=== PATIENT | female | born 1945 | race Caucasian/White ===

== ENCOUNTER → 2016-02-28 | Outpatient (CLI) | payer OTHER ==
[~2016-02-28] MED LIST: CALC500C70 PO; HYDC25 PO; LEVO200T20 PO; LISI40TA PO; PRAV20TA PO; PRCUNK PO
== END | disposition home or self-care (01) ==
LOC: C.LAB 10:20
PROVIDERS: ATTEND Nurse Practitioner
DX: N20.9 Urinary calculus, unspecified (principal)

== ENCOUNTER 2021-02-26 13:08 | Observation (INO) ==
--- NOTE | 2021-02-26 13:41 | Emergency Department Note ---
History of Present Illness General Chief complaint: Syncope Stated complaint: SYNCOPE, VOMITING Time Seen by Provider: 02/26/21 13:30 History of Present Illness 75-year-old female presents via EMS reportedly was at the [facility] stating she turned her head and she may have had a syncopal episode. She did state that she vomited. Patient denies any dizziness denies headache denies slurred speech denies blurred vision. Patient denies any chest pain or shortness of breath. Patient did have an episode of vomiting prehospital. She has no other complaints. Patient states that she is vaccinated with a booster. There are no other mitigating or alleviating factors. There is no prior history of syncope or seizure activity. Home Medications Medication Instructions Recorded Confirmed Type ibuprofen 200 mg capsule 400 mg PO QID PRN 03/11/18 02/17/21 History pravastatin 80 mg tablet 80 mg PO HS #90 tab 05/10/20 02/17/21 Rx amlodipine 10 mg tablet 10 mg PO QAM #90 tab 05/27/20 02/17/21 Rx levothyroxine 125 mcg tablet 125 mcg PO DAILY #30 tab 10/18/20 02/17/21 Rx lisinopril 40 mg tablet 40 mg PO DAILY #90 tab 11/11/20 02/17/21 Rx cholecalciferol (vitamin D3) 25 25 mcg PO DAILY #30 tab 11/13/20 02/17/21 Rx mcg (1,000 unit) tablet metoprolol succinate 50 mg 50 mg PO QAM #30 tab 12/05/20 02/17/21 Rx tablet,extended release 24 hr sulfamethoxazole 800 1 tab PO BID 7 Days #14 tab 02/17/21 02/17/21 Rx mg-trimethoprim 160 mg tablet lorazepam 0.5 mg tablet 0.5 mg PO BID PRN #60 tab 02/26/21 Rx tramadol 50 mg tablet 50 mg PO Q6H PRN #30 tab 02/26/21 Rx Allergies Allergy/AdvReac Type Severity Reaction Status Date / Time atorvastatin Allergy Mild NAUSEA Verified 02/17/21 16:14 Past Med/Surg History Medical History Allergic rhinitis Anxiety Chronic back pain TO LEFT LEG Compression fracture of L4 vertebra Diabetes mellitus type 2, controlled Dyslipidemia GERD (gastroesophageal reflux disease) H/O renal calculi Hemorrhoids Hypertension Hypothyroid Leaking of urine 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 No further treatment warranted at the time. Microscopic hematuria Mitral regurgitation Nephrolithiasis Numerous moles Osteoarthritis Sacroiliitis SOB (shortness of breath) on exertion Tricuspid valve disorder Surgical History H/O lithotripsy History of anesthesia reaction DISORIENTATION FIRST DAY POST OP History of cataract surgery B/L done in summer 2020 History of colonoscopy History of kidney surgery WITH REMOVAL STONE LEFT KIDNEY History of tooth extraction History of tubal ligation Family History Mother Liver cancer Cancer Hypertension Father Lung cancer Cancer Grandfather Lung cancer Family history of diabetes mellitus Grandfather Hypertension Denies family history of Ovarian cancer Prostate cancer Myocardial infarction Breast cancer Colorectal cancer Social History Smoking Status: Never smoker Tobacco Type: Cigarettes Age Started Using Tobacco: 29; Age Quit Using Tobacco: 44; Cigarettes Per Day: only smoked on weekends when social; Second Hand Exposure: No; Hx Alcohol Use: Yes Alcohol type: beer Alcohol Intake Frequency: Monthly or Less Hx Substance Use: No Preferred Language: Citizen Of [place] Communication Ability: Effective Visual Impairment: No Limitations Hearing Ability: Normal Injection Wax Molder Required: No Beliefs That Will Affect Care: None marital status: Single Current Living Situation: Alone current occupational status: retired 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 Feels Safe at Home: Yes Childhood Exposure to Second-Hand Smoke: No caffeine: Yes Dental Care, Regularly: No Physical Activity Frequency: 3-4 Times per Week Seatbelt Use: always Sunscreen Use: Yes Assistive Devices: Glasses Review of Systems A total of 10 systems reviewed and were otherwise negative Constitutional: no fever Ear, Nose, Mouth, Throat: + dizziness Respiratory: no cough Cardiovascular: no chest pain Musculoskeletal: no neck pain Neurologic: + dizziness Physical Exam Vital Signs Vital Signs - 24 hr 02/26/21 13:19 02/26/21 14:59 Temperature 36.8 C Temperature Source Oral Pulse Rate 75 Pulse Rate [Apical] 63 Pulse Rhythm [Apical] Regular Respiratory Rate 14 23 Respiratory Effort / Characteristics Non-Labored Respiratory Depth Normal Blood Pressure 92/58 L Blood Pressure Mean 69 Pulse Oximetry 96 96 Oxygen Delivery Method Room Air Room Air Sepsis Recent Fever Within 48 Hours No Sepsis New/Unexplained Change in Mental Status No Sepsis Action Taken by Nursing No Action Required VITAL SIGNS - Vital signs and nursing notes were reviewed. GENERAL -75-year-old female appearing her stated age who is in no acute d istress. Communicates well with provider and answers questions appropriately. SKIN - Without rashes. HEAD - NC/AT. EYES - PERRL with EOMI bilaterally. Sclera anicteric. Palpebral conjunctiva pink and moist with no injection noted. EARS - No deformities of external structures noted on gross examination bilaterally. NOSE - Midline and without cyanosis. No epistaxis or purulent drainage noted. Septum midline without deviation or septal hematoma noted. MOUTH/OROPHARYNX - Without perioral cyanosis. Buccal mucosa pink and moist and without leukoplakia. Tongue midline with equal elevation of palate bilaterally. No tonsillar hypertrophy, erythema, or exudates noted. [] dentition noted. NECK - Neck with FROM. Supple to palpation. No lymphadenopathy noted. No nuchal rigidity. LUNGS - Chest wall symmetric without accessory muscle use, intercostals retractions, or central cyanosis. Normal vesicular breath sounds CTA B/L. No wheezes, rales, or rhonchi appreciated. CARDIAC - RRR with S1/S2. No murmur, rubs, or gallops appreciated. ABDOMEN - Abdominal contour [] without pulsations or visible masses. BS normoactive all four quadrants. No tenderness, palpable masses, hepatosplenomegaly, or ascites noted. EXTREMITIES - No clubbing or peripheral cyanosis. No pretibial edema present. . +5/5 strength noted in UE/LE bilaterally. NEUROLOGIC - Cranial nerves II through XII grossly intact. Sensory intact to light touch throughout. GCS of 15, nonfocal neurologic exam PSYCH - A&Ox3 and cooperates fully with examiner. Pt is very pleasant and interacts well with examiner. Course Reevaluation(s) Reevaluation #1: On my reevaluation at 1504 patient is resting in no distress she is interactive with myself and her daughter who is at bedside. Patient was given IV fluid she does state some continued nausea. Patient of note related to me that she was in fact on an antibiotic recently for urinary tract infection over the past 2 weeks. Patient has a nonfocal neurologic exam on my repeat examination at this time. Administered Medications Sodium Chloride (Nss 1000ml) 1,000 mls @ 999 mls/hr IV .Q1H1M ONE Stop: 02/26/21 15:48 Last Admin: 02/26/21 14:58 Dose: 999 mls/hr Documented by: [id number] Medical Decision Making Medical Records Attestation: I reviewed the patient's medical records. Laboratory Data Attestation: I reviewed the patient's lab results. Result diagrams: 02/26/21 13:50 02/26/21 13:50 Lab Results 02/26/21 02/26/21 02/26/21 Range/Units 13:50 13:50 13:55 WBC 7.19 (4.8-10.8) K/uL RBC 4.81 (4.2-5.4) M/uL Hgb 13.7 (12.0-16.0) g/dL Hct 42.0 (37-47) % MCV 87.3 (80-100) fL MCH 28.5 (25-34) pg MCHC 32.6 (32-36) g/dL RDW Std Deviation 49.5 H (36.4-46.3) fL RDW Coeff of Sulma 15.4 H (11.5-14.5) % Plt Count 334 (130-400) K/uL MPV 9.4 (7.4-10.4) fL Immature Gran % (Auto) 1.0 % Neut % (Auto) 73.8 % Lymph % (Auto) 14.5 % Dickson % (Auto) 5.3 % Eos % (Auto) 5.1 % Baso % (Auto) 0.3 % Neut # (Auto) 5.31 (1.4-6.5) K/uL Lymph # (Auto) 1.04 L (1.2-3.4) K/uL Dickson # (Auto) 0.38 (0.11-0.59) K/uL Eos # (Auto) 0.37 (0-0.5) K/uL Baso # (Auto) 0.02 (0-0.2) K/uL Immature Gran # (Auto) 0.07 H (0.00-0.02) K/uL Sodium 136 (136-145) mmol/L Potassium 4.2 (3.5-5.1) mmol/L Chloride 103 (98-107) mmol/L Carbon Dioxide 20 L (21-32) mmol/L Anion Gap 13 H (3-11) BUN 32 H (6-23) mg/dl Creatinine 1.77 H (0.6-1.2) mg/dl Est Cr Clr Drug Dosing 31.4 ml/min Est GFR ( Amer) 31.8 ml/min Est GFR (Non-Af Amer) 27.4 ml/min BUN/Creatinine Ratio 18.1 (10-20) Glucose 135 H (70-99) mg/dl Calcium 9.9 (8.5-10.1) mg/dl Magnesium 2.0 (1.7-2.4) mg/dl Total Bilirubin 0.5 (0.2-1.0) mg/dl AST 15 (13-39) U/L ALT 16 (7-52) U/L Alkaline Phosphatase 83 (34-104) U/L Troponin I < 0.03 (0-0.04) ng/ml Total Protein 7.9 (6.0-8.3) gm/dl Albumin 4.0 (3.4-5.0) gm/dl Globulin 3.9 (2.5-4.0) gm/dl Albumin/Globulin Ratio 1.0 (0.9-2) SARS-CoV-2, RNA, NAAT NEGATIVE (NEGATIVE) Imaging Data Radiologist's Impression: Chest X-Ray 02/26/21 13:35 XR chest 1V portable CLINICAL HISTORY: syncope TECHNIQUE: Single frontal radiograph of the chest was obtained. Comparison: Comparison is made to chest 2 views 10/14/2011 FINDINGS: No lines and tubes are seen. Cardiomegaly is noted. Prominence and cephalization of the vasculature is seen. No evidence of pleural effusion or pneumothorax. IMPRESSION: Mild pulmonary edema. ACT 112: Negative or not required by law. Electronically signed by: Joselo Lake M.D. 02/26/2021 2:[address] 02/26/21 13:35 CT head/brain wo con CLINICAL HISTORY: syncope Technique: Contiguous axial CT images of the head were acquired from the base of the skull to the vertex without intravenous contrast administration. Images were viewed in brain, subdural and bone windows. Automated dose lowering techniques and/or adjustment according to patient size were utilized for this exam. Comparison: None available at the time of this dictation. Findings: The ventricles, basal cisterns, and cerebral sulci are normal. There is no acute intracranial hemorrhage or evidence of acute territorial infarction. Neither mass effect, shift of the midline structures, nor abnormal extra-axial fluid collections are shown. Imaged portions of the paranasal sinuses and mastoid air cells are clear. The orbits appear normal. There are no acute fractures of the calvaria or scalp swelling. Impression: No acute intracranial hemorrhage, no evidence of acute territorial infarction or other acute intracranial disease process. ACT 112: Negative or not required by law. Electronically signed by: Joselo Lake M.D. 02/26/2021 2:48 PM ECG Data Attestation: I personally reviewed and interpreted this ECG as follows: Additional Comments: EKG interpreted by me normal sinus rhythm rate of 64 nonspecific T abnormality no ST segment elevation or depression, normal axis normal intervals MDM Narrative Medical decision making differential diagnosis -syncope near syncope seizure metabolic derangement dehydration cardiac dysrhythmia Impression & Plan Syncope, BENJAMÍN (acute kidney injury) Discharge Plan Visit Data Chief Complaint: Syncope Stated Complaint: SYNCOPE, VOMITING ED Provider: Michael Caruso Discharge Problem: Syncope, BENJAMÍN (acute kidney injury) Forms Stand Alone Forms: My [facility] Prescriptions Prescriptions: No Action ibuprofen 200 mg capsule 400 mg PO QID PRN (Reason: Pain) RF: 0 pravastatin 80 mg tablet 80 mg PO HS Qty: 90 RF: 3 levothyroxine 125 mcg tablet 125 mcg PO DAILY Qty: 30 RF: 11 lisinopril 40 mg tablet 40 mg PO DAILY Qty: 90 RF: 3 metoprolol succinate 50 mg tablet extended release 24 hr 50 mg PO QAM Qty: 30 RF: 5 lorazepam 0.5 mg tablet 0.5 mg PO BID PRN (Reason: anxiety) Qty: 60 RF: 1 tramadol 50 mg tablet 50 mg PO Q6H PRN (Reason: pain) Qty: 30 RF: 2 sulfamethoxazole-trimethoprim 800-160 mg tablet 1 tab PO BID 7 Days Qty: 14 RF: 0 amlodipine 10 mg tablet 10 mg PO QAM Qty: 90 RF: 3 cholecalciferol (vitamin D3) 25 mcg (1,000 unit) tablet 25 mcg PO DAILY Qty: 30 RF: 0 Referrals Referrals: Shreyas Little MD [Primary Care Provider] -
--- NOTE | 2021-02-26 13:56 | Electrocardiogram Report ---
Test Reason : Blood Pressure : / mmHG Vent. Rate : 064 BPM Atrial Rate : 064 BPM P-R Int : 188 ms QRS Dur : 088 ms QT Int : 426 ms P-R-T Axes : 053 035 036 degrees QTc Int : 439 ms Poor data quality, interpretation may be adversely affected Normal sinus rhythm Nonspecific T wave abnormality Anterior leads Abnormal ECG When compared with ECG of 27-JAN-2019 08:49, Nonspecific T wave abnormality now present Confirmed by Tomás Longoria ([id number]) on 02/26/2021 1:56:30 PM Referred By: Confirmed By:Tomás Longoria
[2021-02-26 14:01] LABS: Basophils # (auto) 0.02 K/uL (0-0.2); Basophils % (auto) 0.3 %; Eosinophils # (auto) 0.37 K/uL (0-0.5); Eosinophils % (auto) 5.1 %; Hemoglobin 13.7 g/dL (12.0-16.0); Immature Granulocytes # (auto) 0.07 K/uL (0.00-0.02); Lymphocytes # (auto) 1.04 K/uL (1.2-3.4); Lymphocytes % (auto) 14.5 %; Mean Corpuscular Hemoglobin 28.5 pg (25-34); Mean Corpuscular Hgb Conc 32.6 g/dL (32-36); Mean Corpuscular Volume 87.3 fL (80-100); Mean Platelet Volume 9.4 fL (7.4-10.4); Monocytes # (auto) 0.38 K/uL (0.11-0.59); Monocytes % (auto) 5.3 %; Neutrophils # (auto) 5.31 K/uL (1.4-6.5); Neutrophils % (auto) 73.8 %; Platelet Count 334 K/uL (130-400); RDW Coefficient of Variation 15.4 % (11.5-14.5); RDW Standard Deviation 49.5 fL (36.4-46.3); Red Blood Count 4.81 M/uL (4.2-5.4); White Blood Count 7.19 K/uL (4.8-10.8)
--- NOTE | 2021-02-26 14:11 | XRay Report ---
XR chest 1V portable CLINICAL HISTORY: syncope TECHNIQUE: Single frontal radiograph of the chest was obtained. Comparison: Comparison is made to chest 2 views 10/14/2011 FINDINGS: No lines and tubes are seen. Cardiomegaly is noted. Prominence and cephalization of the vasculature i s seen. No evidence of pleural effusion or pneumothorax. IMPRESSION: Mild pulmonary edema. ACT 112: Negative or not required by law. Electronically signed by: Joselo Lake M.D. 02/26/2021 2:10 PM
[2021-02-26 14:20] LABS: Anion Gap 13 (3-11); Bilirubin,Total 0.5 mg/dl (0.2-1.0); Calcium 9.9 mg/dl (8.5-10.1); Carbon Dioxide 20 mmol/L (21-32); Chloride 103 mmol/L (98-107); Potassium 4.2 mmol/L (3.5-5.1); Sodium 136 mmol/L (136-145)
[2021-02-26 14:24] LABS: Troponin I < 0.03 ng/ml (0-0.04)
[2021-02-26 14:26] LABS: Alanine Aminotransferase 16 U/L (7-52); Alkaline Phosphatase 83 U/L (34-104); Aspartate Aminotransferase 15 U/L (13-39); BUN Creatinine Ratio 18.1 (10-20); Blood Urea Nitrogen 32 mg/dl (6-23); Creatinine Clr Calc Pharmacy 31.4 ml/min; Est GFR (African American) 31.8 ml/min; Est GFR (Non-African American) 27.4 ml/min; Globulin 3.9 gm/dl (2.5-4.0); Glucose 135 mg/dl (70-99); Total Protein 7.9 gm/dl (6.0-8.3)
[2021-02-26] MEDS ORDERED: SODIUM CHLORIDE 0.9% 1000ML 1,000 ML IV ONE (14:48)
--- NOTE | 2021-02-26 14:49 | CT Scan Report ---
CT head/brain wo con CLINICAL HISTORY: syncope Technique: Contiguous axial CT images of the head were acquired from the base of the skull to the dileep dodie without intravenous contrast administration. Images were viewed in brain, subdural and bone [facility]. Automated dose lowering techniques and/or adjustment according to patient size were utilized for this exam. Comparison: None available at the time of this dictation. Findings: The ventricles, basal cisterns, and cerebral sulci are normal. There is no acute intracranial hemorrh age or evidence of acute territorial infarction. Neither mass effect, shift of the midline structures , nor abnormal extra-axial fluid collections are shown. Imaged portions of the paranasal sinuses and mastoid air cells are clear. The orbits appear normal. There are no acute fractures of the calvaria or scalp swelling. Impression: No acute intracranial hemorrhage, no evidence of acute territorial infarction or other acute intracra nial disease process. ACT 112: Negative or not required by law. Electronically signed by: Joselo Lake M.D. 02/26/2021 2:48 PM
--- NOTE | 2021-02-26 16:23 | History & Physical Report ---
Date of Service February 26, 2021 Assessment & Plan (1) Syncope: Plan: Difficult to ascertain as patient adamantly denies - She has no focal deficits, she is not vertiginous, and negative HINTS exam - She is currently orthostatic negative- although she is BB - Negative telemetry review- will continue telemetry overnight although low yield - No carotid bruits and normal CT scan of head - Likely secondary to hypovolemia (2) Nausea & vomiting: Plan: No abdominal pain or current pathology suspected - ? relation to her Bactrim - Likely associated with her UTI - Repeat Urine - Allow patient to eat and hydrate as above (3) UTI (urinary tract infection): Plan: Pending UA - Continue Bactrim- if nausea persists change to Augmentin or other (4) BENJAMÍN (acute kidney injury): Plan: BENJAMÍN II currently appears pre-renal - would like to ensure that her UTI is controlled - She has no CVA tenderness or pain, afebrile - UA pending - IF renal function not improved in am consider renal ultrasound - Hold ANGELES for now (5) Hypertension: Plan: Normally well controlled - As above - Continue Metoprolol - Continue Amlodopine (6) Hypothyroid: Plan: Continue synthroid (7) Anxiety: Plan: No acute need (8) Lumbago: Plan: Continue home medicaitons (9) Diabetes mellitus type 2, controlled: Plan: Not on therapy as outpatient - follow glucose on BMP History of Present Illness Primary Care Provider: Shreyas Little MD 75 YOF with past medical history of: HTN, Hypothyroidism, Obesity, HLD, Kidney stones, DMII. Patient comes to the emergency room today via EMS secondary to syncopal eppisode x2 at the [facility]. The patient goes to the [facility] mostly every day to play cards and eat. Today she did not eat lunch there but did eat breakfast prior to going with out any issues. She reports that around noon today she experienced nausea with vomiting x2 the vomit was orange in color as she did eat an orange for breakfast this morning with her coffee and bowel of cereal. EMS reports that she synchronized, however she adamantly denies this. She denied any light headedness, ringing in ears, vertiginosus symptoms or abdominal pain. She reports that she had her head turned to the right while she was still talking to the person next to her when she says they thought she passed out. Patient has been being treated for UTI by her PCP for E.COLI and was just changed from Macrobid to Bactrim yesterday, she originally had complaints of dysuria and frequency with small amounts of urine. She endorses that the dysuria has gone away, however remains with frequency. She has not had the urge to void since being in the EMD. A repeat urine is being sent. In the EMD the patient had a head CT scan performed, CXR, ECG and routine labs drawn. 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 She was given 1L of crystalloid with increase in her BP back to her baseline, she was not hypoxic, and she was not tachycardic. Patient had a stress ECHO completed in 2001 and has no other cardiac disease that is known. Patient will be observed overnight with following of her renal function. She has no CVA tenderness, afebrile and normal WBC. Continue with oral hydration. Patient COVID test is: NEGATIVE Allergies Allergy/AdvReac Type Severity Reaction Status Date / Time atorvastatin Allergy Mild NAUSEA Verified 02/26/21 16:41 Home Medications Medication Instructions Recorded Confirmed Type ibuprofen 200 mg capsule 400 mg PO QID PRN 03/11/18 02/26/21 History pravastatin 80 mg tablet 80 mg PO HS #90 tab 05/10/20 02/26/21 Rx amlodipine 10 mg tablet 10 mg PO QAM #90 tab 05/27/20 02/26/21 Rx levothyroxine 125 mcg tablet 125 mcg PO DAILY #30 tab 10/18/20 02/26/21 Rx lisinopril 40 mg tablet 40 mg PO DAILY #90 tab 11/11/20 02/26/21 Rx cholecalciferol (vitamin D3) 25 25 mcg PO DAILY #30 tab 11/13/20 02/26/21 Rx mcg (1,000 unit) tablet metoprolol succinate 50 mg 50 mg PO QAM #30 tab 12/05/20 02/26/21 Rx tablet,extended release 24 hr sulfamethoxazole 800 1 tab PO BID 7 Days #14 tab 02/17/21 02/26/21 Rx mg-trimethoprim 160 mg tablet ibuprofen 200 mg tablet 400 mg PO Q6H PRN 02/26/21 02/26/21 History lorazepam 0.5 mg tablet 0.5 mg PO BID PRN #60 tab 02/26/21 02/26/21 Rx tramadol 50 mg tablet 50 mg PO Q6H PRN #30 tab 02/26/21 02/26/21 Rx Past Med/Surg History Medical History Allergic rhinitis Anxiety Chronic back pain TO LEFT LEG Compression fracture of L4 vertebra Diabetes mellitus type 2, controlled Dyslipidemia GERD (gastroesophageal reflux disease) H/O renal calculi Hemorrhoids Hypertension Hypothyroid Leaking of urine 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 No further treatment warranted at the time. Microscopic hematuria Mitral regurgitation Nephrolithiasis Numerous moles Osteoarthritis Sacroiliitis SOB (shortness of breath) on exertion Tricuspid valve disorder Surgical History H/O lithotripsy History of anesthesia reaction DISORIENTATION FIRST DAY POST OP History of cataract surgery B/L done in summer 2020 History of colonoscopy History of kidney surgery WITH REMOVAL STONE LEFT KIDNEY History of tooth extraction History of tubal ligation Family History Mother Liver cancer Cancer Hypertension Father Lung cancer Cancer Grandfather Lung cancer Family history of diabetes mellitus Grandfather Hypertension Denies family history of Ovarian cancer Prostate cancer Myocardial infarction Breast cancer Colorectal cancer Social History Smoking Status: Never smoker Tobacco Type: Cigarettes Age Started Using Tobacco: 29; Age Quit Using Tobacco: 44; Cigarettes Per Day: only smoked on weekends when social; Second Hand Exposure: No; Do You Dip or Chew Tobacco: No; Hx Alcohol Use: Yes Alcohol type: beer and hard liquor Alcohol Intake Frequency: Monthly or Less Hx Substance Use: No Preferred Language: Barbadian Communication Ability: Effective Visual Impairment: No Limitations Hearing Ability: Normal Access Database Developer Required: No Beliefs That Will Affect Care: None marital status: Single Current Living Situation: Alone current occupational status: retired 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 Other Information That Helps Us Care for You: No Feels Safe at Home: Yes Childhood Exposure to Second-Hand Smoke: No caffeine: Yes Dental Care, Regularly: No Physical Activity Frequency: 3-4 Times per Week Seatbelt Use: always Sunscreen Use: Yes Assistive Devices: Glasses Review of Systems Review of Systems: REVIEW OF SYSTEMS: Constitutional: No fever, sweats or chills Eyes: No diplopia, no worsening or blurred vision ENT: normal hearing, no trouble swallowing Respiratory: No cough, sputum, dyspnea at rest or on exertion Cardiovascular: No chest pain, tightness or palpitations Abdomen: (+) nausea and vomiting Urinary frequency, No pain, nausea, vomiting, diarrhea or constipation Musculoskeletal: No joint pain, calf pain, swelling Neurologic: No weakness, numbness/tingling, or balance problems Psychiatric: No anxiety or depression Skin: No rash or itch Physical Exam Physical Exam: PHYSICAL EXAM: General: awake, alert, no apparent distress Head: Normocephalic, atraumatic ENT: PERRL, EOMI, no pharyngeal exudate, mucous membranes moist Neuro: AAO x 3, speech clear and appropriate, strength intact bilaterally 5/5, sensation intact and equal all extremities and dermatomes, no pronator drift Chest: equal rise and fall of the chest, no accessory muscle use, no heaves or thrills, Clear to auscultation, on room air, Cardiac: Regular rate and rhythm, telemetry reviewed, skin warm dry, cap refill <3 seconds, peripheral pulses +2 no JVD, no murmur, no edema GI: NABS x 4 quadrants, soft, nontender to palpation, no rebound, guarding or tenderness : Spontaneously voiding, no pain, no CVA tenderness, Extremities: Normal inspection, no peripheral edema or erythema, calfs nontender to palpation Psych: Normal mood and affect Skin: no rash or erythema Results & Data Results & Data ([facility]) Vital Signs (Past 12 Hours) Vital Signs Temp Pulse Pulse Resp BP Pulse Ox 02/26/21 14:59 63 23 96 02/26/21 13:19 36.8 C 75 14 92/58 L 96 Laboratory Results Abnormal lab results 02/26/21 02/26/21 Range/Units 13:50 13:50 RDW Std Deviation 49.5 H (36.4-46.3) fL RDW Coeff of Sulam 15.4 H (11.5-14.5) % Lymph # (Auto) 1.04 L (1.2-3.4) K/uL Immature Gran # (Auto) 0.07 H (0.00-0.02) K/uL Carbon Dioxide 20 L (21-32) mmol/L Anion Gap 13 H (3-11) BUN 32 H (6-23) mg/dl Creatinine 1.77 H (0.6-1.2) mg/dl Glucose 135 H (70-99) mg/dl Diagnostic Findings Chest X-Ray 02/26/21 13:35 XR chest 1V portable CLINICAL HISTORY: syncope TECHNIQUE: Single frontal radiograph of the chest was obtained. Comparison: Comparison is made to chest 2 views 10/14/2011 FINDINGS: No lines and tubes are seen. Cardiomegaly is noted. Prominence and cephalization of the vasculature is seen. No evidence of pleural effusion or pneumothorax. IMPRESSION: Mild pulmonary edema. ACT 112: Negative or not required by law. Electronically signed by: Joselo Lake M.D. 02/26/2021 2:[address] 02/26/21 13:35 CT head/brain wo con CLINICAL HISTORY: syncope Technique: Contiguous axial CT images of the head were acquired from the base of the skull to the vertex without intravenous contrast administration. Images were viewed in brain, subdural and bone windows. Automated dose lowering techniques and/or adjustment according to patient size were utilized for this exam. Comparison: None available at the time of this dictation. Findings: The ventricles, basal cisterns, and cerebral sulci are normal. There is no acute intracranial hemorrhage or evidence of acute territorial infarction. Neither mass effect, shift of the midline structures, nor abnormal extra-axial fluid collections are shown. Imaged portions of the paranasal sinuses and mastoid air cells are clear. The orbits appear normal. There are no acute fractures of the calvaria or scalp swelling. Impression: No acute intracranial hemorrhage, no evidence of acute territorial infarction or other acute intracranial disease process. ACT 112: Negative or not required by law. Electronically signed by: Joselo Lake M.D. 02/26/2021 2:48 PM Medications Administered Discontinued Medications Sodium Chloride (Nss 1000ml) 1,000 mls @ 999 mls/hr IV .Q1H1M ONE Stop: 02/26/21 15:48 Last Admin: 02/26/21 14:58 Dose: 999 mls/hr Documented by: [id number] ECG Additional Comments: Test Reason : Vent. Rate : 064 BPM Atrial Rate : 064 BPM P-R Int : 188 ms QRS Dur : 088 ms QT Int : 426 ms P-R-T Axes : 053 035 036 degrees QTc Int : 439 ms Poor data quality, interpretation may be adversely affected Normal sinus rhythm Nonspecific T wave abnormality Anterior leads Abnormal ECG When compared with ECG of 27-JAN-2019 08:49, Nonspecific T wave abnormality now present Confirmed by Tomás Longoria ([id number]) on 02/26/2021 1:56:30 PM Code Status & VTE Plan Code Status CODE: DNR/DNI VTE: SCDs, Lovenox VTE Prophylaxis Plan VTE Prophylaxis will be ordered: Yes Supervising Physician Co-Signing Physician Notes Patient was seen and examined independently I discussed the case with Dwight SIM I reviewed pertinent past medical social family history and also the plan of care and agree with the plan of care. Patient with an episode of perhaps loss of consciousness involving left head turning. She has recently been on Bactrim for UTI which may be causing some abdominal upset. She denies any and vomiting after the event. She is brought in for syncope observation on telemetry monitoring we will give her antibiotics intravenously to try to complete her course of antibiotics to avoid any gastric upset from her Bactrim. Reevaluate in the morning with orthostatics and blood pressure Digital exam finds her to be awake alert appropriate no apparent distress she no carotid bruits her heart is regular Any exceptions will be noted below PG Care Time/CCT Total # of Minutes Spent Total Time Spent with Patient: Total time spent is greater than 50% in coordination of care (as documented) at patient's floor/unit and/or counseling patient: Coding Level of Care Code INT OBSERVATION CARE 50M LVL 2 Diagnoses Nausea & vomiting R11.2 UTI (urinary tract infection) N39.0 BENJAMÍN (acute kidney injury) N17.9 Hypertension I10 Hypothyroid E03.9 Anxiety F41.9 Lumbago M54.5 Diabetes mellitus type 2, controlled E11.9 Syncope R55 Syncope type: unspecified (1) Syncope Syncope type: unspecified Qualified Code(s): R55 - Syncope and collapse
[2021-02-26] MEDS ORDERED: ONDANSETRON INJ 2 MG/ML 2 ML VIAL IV PRN (19:28)
[2021-02-26] MEDS ORDERED: ACETAMINOPHEN 325 MG TAB PO PRN (19:28)
[2021-02-26] MEDS ORDERED: POLYETHYLENE (MIRALAX) 17 GM PACK PO PRN (19:28)
[2021-02-26] MEDS ORDERED: traMADol HCL 50 MG TABLET PO PRN (19:58)
[2021-02-26] MEDS ORDERED: LORazepam 0.5 MG TAB PO PRN (19:58)
[2021-02-26] MEDS ORDERED: cefTRIAXone SODIUM 1,000 MG in DEXTROSE 5% 50 ML IV STA (19:59)
[2021-02-26] MEDS ORDERED: ENOXAPARIN INJ 40 MG/0.4 ML SYR SQ SCH (20:00)
[2021-02-26] MEDS ORDERED: cefTRIAXone SODIUM 2,000 MG in DEXTROSE 5% 50 ML IV ONE (20:15)
[2021-02-26] MEDS ORDERED: PRAVASTATIN SOD 40 MG TAB PO SCH (21:00)
[2021-02-26 21:38] LABS: Appearance Urine Clear (Clear); Bacteria Urine Automated Negative (Negative); Bilirubin Urine Negative (Negative); Blood Urine Negative (Negative); Color Urine Yellow; Epithelial Cell Urine Auto >30 /lpf (0-5); Glucose Urine UA Negative (Negative); Ketones Urine Negative (Negative); Leukocyte Esterase Urine Negative (Negative); Nitrite Urine Negative (Negative); Protein Urine Trace (Negative); RBC Urine Automated 0-4 /hpf (0-4); Specific Gravity Urine 1.016 (1.000-1.030); Urobilinogen Urine Negative (Negative); pH Urine 5.5 (4.5-7.5)
[2021-02-27] MEDS ORDERED: LEVOTHYROXINE SODIUM 125 MCG TABLET PO SCH (06:30)
[2021-02-27 07:47] LABS: Basophils # (auto) 0.03 K/uL (0-0.2); Basophils % (auto) 0.5 %; Eosinophils # (auto) 0.65 K/uL (0-0.5); Eosinophils % (auto) 10.9 %; Hematocrit (blood only) 37.8 % (37-47); Hemoglobin 12.2 g/dL (12.0-16.0); Immature Granulocytes # (auto) 0.04 K/uL (0.00-0.02); Immature Granulocytes % (auto) 0.7 %; Lymphocytes # (auto) 2.18 K/uL (1.2-3.4); Lymphocytes % (auto) 36.6 %; Mean Corpuscular Hgb Conc 32.3 g/dL (32-36); Mean Corpuscular Volume 86.9 fL (80-100); Mean Platelet Volume 9.2 fL (7.4-10.4); Monocytes % (auto) 13.4 %; Neutrophils # (auto) 2.25 K/uL (1.4-6.5); Neutrophils % (auto) 37.9 %; Platelet Count 259 K/uL (130-400); RDW Coefficient of Variation 15.6 % (11.5-14.5); RDW Standard Deviation 50.1 fL (36.4-46.3); Red Blood Count 4.35 M/uL (4.2-5.4); White Blood Count 5.95 K/uL (4.8-10.8)
[2021-02-27 08:24] LABS: BUN Creatinine Ratio 24.3 (10-20); Calcium 8.5 mg/dl (8.5-10.1); Creatinine Clr Calc Pharmacy 49.4 ml/min; Est GFR (African American) 55.9 ml/min; Est GFR (Non-African American) 48.2 ml/min; Magnesium 1.9 mg/dl (1.7-2.4)
[2021-02-27] MEDS ORDERED: METOPROLOL SUCC 50MG EXT REL TAB PO SCH (09:00)
[2021-02-27] MEDS ORDERED: amLODIPine BESYLATE 5 MG TAB PO SCH (09:00)
--- NOTE | 2021-02-27 10:40 | Discharge Summary ---
Date of Service February 27, 2021 Admission HPI Per Admitting Provider 75 YOF with past medical history of: HTN, Hypothyroidism, Obesity, HLD, Kidney stones, DMII. Patient comes to the emergency room today via EMS secondary to syncopal eppisode x2 at the [facility]. The patient goes to the [facility] mostly every day to play cards and eat. Today she did not eat lunch there but did eat breakfast prior to going with out any issues. She reports that around noon today she experienced nausea with vomiting x2 the vomit was orange in color as she did eat an orange for breakfast this morning with her coffee and bowel of cereal. EMS reports that she synchronized, however she a damantly denies this. She denied any light headedness, ringing in ears, vertiginosus symptoms or abdominal pain. She reports that she had her head turned to the right while she was still talking to the person next to her when she says they thought she passed out. Patient has been being treated for UTI by her PCP for E.COLI and was just changed from Macrobid to Bactrim yesterday, she originally had complaints of dysuria and frequency with small amounts of urine. She endorses that the dysuria has gone away, however remains with frequency. She has not had the urge to void since being in the EMD. A repeat urine is being sent. In the EMD the patient had a head CT scan performed, CXR, ECG and routine labs drawn. 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 She was given 1L of crystalloid with increase in her BP back to her baseline, she was not hypoxic, and she was not tachycardic. Patient had a stress ECHO completed in 2001 and has no other cardiac disease that is known. Patient will be observed overnight with following of her renal function. She has no CVA tenderness, afebrile and normal WBC. Continue with oral hydration. Patient COVID test is: NEGATIVE Admission Exam Per Admitting Provider PHYSICAL EXAM: General: awake, alert, no apparent distress Head: Normocephalic, atraumatic ENT: PERRL, EOMI, no pharyngeal exudate, mucous membranes moist Neuro: AAO x 3, speech clear and appropriate, strength intact bilaterally 5/5, sensation intact and equal all extremities and dermatomes, no pronator drift Chest: equal rise and fall of the chest, no accessory muscle use, no heaves or thrills, Clear to auscultation, on room air, Cardiac: Regular rate and rhythm, telemetry reviewed, skin warm dry, cap refill <3 seconds, peripheral pulses +2 no JVD, no murmur, no edema GI: NABS x 4 quadrants, soft, nontender to palpation, no rebound, guarding or tenderness : Spontaneously voiding, no pain, no CVA tenderness, Extremities: Normal inspection, no peripheral edema or erythema, calfs nontender to palpation Psych: Normal mood and affect Skin: no rash or erythema Principal Diagnosis Hypotension secondary to dehydration Discharge Exam General: No acute distress HEENT: Normocephalic atraumatic Neck: No significant lymphadenopathy, trachea midline, normal to visual inspe ction Cardiac: Regular rate and rhythm, normal S1, normal S2, I did not appreciated any significant murmurs rubs or gallops, I did not appreciate any significant pedal edema, No calf tenderness, capillary refill is less than 3 seconds Respiratory: Clear to auscultation bilaterally with symmetrical chest rise, I did not appreciate any significant wheezes, rales, rhonchi, no increased work of breathing GI: Normal bowel sounds, soft, nontender in all 4 quadrants, nondistended MSK: No sensory or motor changes, moves all extremities without issue, extremities are warm and well-perfused Skin: [place], clean, dry, intact. Neuro: Alert and oriented x4 Psych: Calm, cooperative, logical thought process Discharge Data Allergies Allergy/AdvReac Type Severity Reaction Status Date / Time atorvastatin Allergy Mild NAUSEA Verified 02/26/21 16:41 Consultations 02/26/21 15:51 ED Decision to Admit Stat Ordered Studies 02/26/21 13:35 CT head/brain wo con Stat Hospital Course (1) BENJAMÍN (acute kidney injury): (2) Nausea & vomitin-year-old female past medical history of hypertension, hypothyroidism, obesity, hyperlipidemia, kidney stones, diabetes type 2 diet controlled. Patient initially presented for evaluation of hypotension and seizure-like symptoms per EMS report. She was [facility] telemetry and monitored overnight, ct finding demonstrating no acute process, there were no signs of arrhythmia, there is no further seizure-like activity, she did have a history of UA and was on Bactrim last dose Wednesday night. Her UA obtained in the hospital was negative. On the morning after admission she reported feeling back to normal. She states that she remembers the entire event, she does not think that she actually lost consciousness. She does not remember any seizure-like episodes, she remembers all the events, can recall the events preceding the episode and immediately afterwards. She says she is able to state her name, her location, and did not appear confused. This morning neurological exam was intact. Given patient's benign findings, and findings of BENJAMÍN on admission suspect the majority of her symptoms were related to recent history of urinary tract infection coupled with dehydration. Advised the patient upon discharge to follow-up with her primary care provider. N/V likely 2/2 to bactrim. Total Time Total Time Spent Total Time Spent (In Minutes): 34 Discharge Plan Discharge Items Patient Disposition: Home - Self-Care Reason For Visit: HYPOTENSION, NAUSEA, UTI Discharge Diagnosis: Hypotension secondary to dehydration Activity: Resume your previous activity Non-emergency contact: Primary Care Provider Call non-emergency contact if: your symptoms worsen and your pain is not controlled Follow-up/Referrals: Marycruz Leon PA-C [Physician [facility]] - 03/05/21 3:00 pm (Primary c are - post hospital visit) Diet: Regular Addtl Attending Provider Instructions: Care instructions: You were admitted to [facility] for treatment of hypotension with questionable syncopal episode. While hospitalized you were provided with fluid rehydration, and your vital signs were monitored. Furthermore your cardiac activity was monitored on telemetry. There is no indication of any significant abnormalities. The lab values indicative of dehydration normalized after fluid rehydration. As we discussed I suspect that the majority of your symptoms are likely related to dehydration in the setting of recent UTI. Recommend you follow-up with your primary care provider on discharge and consider outpatient neurology consultation. A discharge summary will be sent to your primary care physician to ensure continuity of care. Please bring this discharge summary with you to your next office appointment so that your provider can review it at that time. Follow-up appointments: - Keep all your follow-up appointments as already scheduled. If you cannot make an appointment, notify your provider. - Please call to request a follow-up appointment with your primary care physician within one week of discharge. Please let us know if you are unable to obtain an appointment Medications: - Your medication list has been reviewed and reconciled upon discharge to ensure accuracy and continuity of care. - You are provided with a list of all your current medications at this time. Please review this list closely and make note of any changes. - Please take all of your medications exactly as prescribed. - Tell your primary care provider if you cannot afford your medications. - Call your primary care provider if you are having any side effects or any other problems. - Call your primary care provider before taking any over the counter medications or supplements, including herbals and vitamins, because some of these may interact with your current medications and/or make your symptoms worse. Symptoms: Please call your primary care provider for symptoms including, but not limited to: fevers (temperatures greater than 100.4), chills, intractable nausea or vomiting, diarrhea, rash, shortness of breath, bleeding, pain, or if you experience any worsening of the symptoms that brought you to the hospital. For EMERGENCY and VERY SERIOUS health-related issues, such as chest pain, shortness of breath, or sudden onset of the symptoms that brought you to the hospital, you may need to call 911 or go directly to the Emergency Room It has been our privilege to take care of you during your hospital stay. And Above All Else Feel Better! Best Wishes, Eddy Valencia MD PGY3 Resident, Family & Community Medicine [facility] FCM Residency at [facility] - [address], [address] MC: [place] [address] Pending Studies at Discharge: No Stand-Alone Forms: My [facility], Smoking Cessation Medications and DC Order Prescriptions: Continued ibuprofen 200 mg capsule 400 mg PO QID PRN (Reason: Pain) RF: 0 pravastatin 80 mg tablet 80 mg PO HS Qty: 90 RF: 3 levothyroxine 125 mcg tablet 125 mcg PO DAILY Qty: 30 RF: 11 lisinopril 40 mg tablet 40 mg PO DAILY Qty: 90 RF: 3 metoprolol succinate 50 mg tablet extended release 24 hr 50 mg PO QAM Qty: 30 RF: 5 lorazepam 0.5 mg tablet 0.5 mg PO BID PRN (Reason: anxiety) Qty: 60 RF: 1 tramadol 50 mg tablet 50 mg PO Q6H PRN (Reason: pain) Qty: 30 RF: 2 amlodipine 10 mg tablet 10 mg PO QAM Qty: 90 RF: 3 cholecalciferol (vitamin D3) 25 mcg (1,000 unit) tablet 25 mcg PO DAILY Qty: 30 RF: 0 ibuprofen 200 mg Tablet 400 mg PO Q6H PRN (Reason: Pain) RF: 0 Discontinued sulfamethoxazole-trimethoprim 800-160 mg tablet 1 tab PO BID 7 Days Qty: 14 RF: 0 Discharge Orders: Discharge Order (Routine); Ordered 02/27/21 Ordered By: Eddy Valencia Admission Data Admit Date/Time: 02/26/21 15:58 Attending Provider: Gwendolyn Garvey Admit Provider: John Breen Primary Care Provider: Shreyas Little Other Providers: John Breen Other Interventions: Discharge Summary Assessment (RN) Last Done: 02/27/21 11:16 Supervising Physician Co-Signing Physician Notes Resident Physician Supervision Note: I independently interviewed and examined the patient and verified the cruz history and physical, reviewed labs and image studies and agree with resident Dr. Valencia findings and care plan.
== END 2021-02-27 14:00 | disposition home or self-care (01) ==
LOC: 2N 13:08 → ED 13:08 → SUATTDRO 15:58 → 2N 18:53